=== PATIENT | female | born 1975 | race Caucasian/White ===

== ENCOUNTER → 2016-12-21 | Outpatient (CLI) | payer BC ==
[2016-12-21 11:58] LABS: Basophils % (A) 1 %; CH 30.3; CHCM 33.6; Eosinophils # (A) 0.3 k/uL (0-0.7); Eosinophils % (A) 4 %; HCT 42.4 % (34.0-46.0); HDW 2.64; HGB 13.7 gm/dL (11.4-16.0); Luc # (Auto) 0.09; Luc % (Auto) 1; Lymphocytes # (A) 3.1 k/uL (1.0-4.8); Lymphocytes % (A) 44 %; MCH 29.4 pg (25.0-35.0); MCHC 32.4 g/dL (31.0-37.0); MCV 90.7 fL (80.0-100.0); Mean Platelet Volume 6.8; Monocytes # (A) 0.3 k/uL (0-1.0); Monocytes % (A) 4 %; Neutrophils # (A) 3.2 k/uL (1.3-7.7); Neutrophils % (A) 46 %; RBC 4.67 m/uL (3.80-5.40); RDW 13.8 % (11.5-15.5); WBC (Perox) 7.29
== END | disposition home or self-care (01) ==
LOC: LABWHC1 11:27
PROVIDERS: ATTEND Family Medicine
DX: E78.00 Pure hypercholesterolemia, unspecified (principal); R68.84 Jaw pain; R53.83 Other fatigue; D17.1 Benign lipomatous neoplasm of skin and subcutaneous tissue of trunk; E66.9 Obesity, unspecified
CPT/HCPCS: 36415; 82947; 84443; 85025

== ENCOUNTER → 2016-12-29 | Outpatient (CLI) | payer BC ==
--- NOTE | 2016-12-30 10:50 | MM ---
Reason for exam: screening (asymptomatic). Last mammogram was performed 3 years and 7 months ago. Physical Findings: A clinical breast exam by your physician is recommended on an annual basis and results should be correlated with mammographic findings. MG 3D Screening Mammo W/Cad Bilateral CC and MLO view(s) were taken. Prior study comparison: May 23, 2013, left diagnostic mammogram w/CAD. September 08, 2012, [facility] DIGITAL LEFT BREAST MAMMOGRAM w/CAD. The breast tissue is heterogeneously dense. This may lower the sensitivity of mammography. Nodular density inner upper right breast with suggestion of microcalcifications. This finding is changed when compared with previous exams. ASSESSMENT: Incomplete: need additional imaging evaluation, BI-RAD 0 RECOMMENDATION: Special view mammogram of the right breast. If lesion persists on supplemental views, image directed ultrasound is recommended. [facility] will attempt to contact patient to return for supplemental views and ultrasound if indicated.
== END | disposition home or self-care (01) ==
LOC: RADMAMWWP 07:59
PROVIDERS: ATTEND Obstetrics & Gynecology
DX: Z12.31 Encounter for screening mammogram for malignant neoplasm of breast (principal); R92.2 Inconclusive mammogram
CPT/HCPCS: 77063; G0202

== ENCOUNTER → 2017-01-01 | Outpatient (CLI) | payer BC ==
--- NOTE | 2017-01-01 08:55 | MM ---
Reason for exam: additional evaluation requested from abnormal screening. Last mammogram was performed less than 1 month ago. Physical Findings: Nurse did not find any significant physical abnormalities on exam. MG 3D Work Up W/Cad RT Spot compression CC, spot compression MLO, and LM view(s) were taken of the right breast. Prior study comparison: December 29, 2016, bilateral MG 3d screening mammo w/cad. May 23, 2013, left diagnostic mammogram w/CAD. The breast tissue is heterogeneously dense. This may lower the sensitivity of mammography. No nodular density persists. Group of calcifications larger on lateral view consistent with milk of calcium. These results were verbally communicated with the patient and result sheet given to the patient on 01/01/17. ASSESSMENT: Benign, BI-RAD 2 RECOMMENDATION: Return to routine screening mammogram schedule for both breasts.
== END | disposition home or self-care (01) ==
LOC: RADMAMWWP 07:37
PROVIDERS: ATTEND Obstetrics & Gynecology
DX: R92.8 Other abnormal and inconclusive findings on diagnostic imaging of breast (principal)
CPT/HCPCS: G0206; G0279

== ENCOUNTER → 2019-05-29 | Outpatient (CLI) | payer BC ==
[2019-05-29 13:00] LABS: ALT 29 U/L (9-52); AST 22 U/L (14-36); African American GFR (CKD) >90 (>60 ml/min/1.73 sqM); Albumin 4.3 g/dL (3.5-5.0); Alkaline Phosphatase 73 U/L (38-126); Anion Gap 11 mmol/L; Blood Urea Nitrogen 12 mg/dL (7-17); Calcium 9.5 mg/dL (8.4-10.2); Carbon Dioxide 24 mmol/L (22-30); Chloride 103 mmol/L (98-107); Cholesterol 171 mg/dL (<200); Glucose 89 mg/dL (74-99); HDL Cholesterol 52 mg/dL (40-60); LDL Cholesterol,Calculated 98 mg/dL (0-99); Potassium 3.7 mmol/L (3.5-5.1); Sodium 138 mmol/L (137-145); Total Protein 7.1 g/dL (6.3-8.2); Triglycerides 104 mg/dL (<150)
[2019-05-29 13:15] LABS: T4, Free (Free Thyroxine) 0.87 ng/dL (0.78-2.19)
[2019-05-29 13:27] LABS: Basophils # (A) 0.1 k/uL (0-0.2); Basophils % (A) 1 %; Eosinophils # (A) 0.2 k/uL (0-0.7); Eosinophils % (A) 3 %; HCT 39.5 % (34.0-46.0); HGB 12.9 gm/dL (11.4-16.0); Lymphocytes # (A) 3.3 k/uL (1.0-4.8); Lymphocytes % (A) 39 %; MCH 29.4 pg (25.0-35.0); MCHC 32.6 g/dL (31.0-37.0); MCV 90.4 fL (80.0-100.0); Mean Platelet Volume 7.3; Monocytes # (A) 0.5 k/uL (0-1.0); Monocytes % (A) 6 %; Neutrophils # (A) 4.2 k/uL (1.3-7.7); Neutrophils % (A) 50 %; Platelet Count 223 k/uL (150-450); RBC 4.37 m/uL (3.80-5.40); RDW 13.5 % (11.5-15.5); WBC 8.4 k/uL (3.8-10.6)
--- NOTE | 2019-05-30 10:01 | MM ---
Reason for exam: screening (asymptomatic). Last mammogram was performed 2 years and 5 months ago. Physical Findings: A clinical breast exam by your physician is recommended on an annual basis and results should be correlated with mammographic findings. MG Screening Mammo w CAD Bilateral CC and MLO view(s) were taken. Prior study comparison: January 01, 2017, right breast MG 3d work up w/cad RT. December 29, 2016, bilateral MG 3d screening mammo w/cad. The breast tissue is heterogeneously dense. This may lower the sensitivity of mammography. There is an increased group of 4mm left upper outer quadrant posterior depth mass. No suspicious abnormality in the right breast. Left anterior depth round superior asymmetry. ASSESSMENT: Incomplete: need additional imaging evaluation, BI-RAD 0 RECOMMENDATION: Special view mammogram of the left breast. If lesion persists on supplemental views, image directed ultrasound is recommended. [facility] will attempt to contact patient to return for supplemental views and ultrasound if indicated.
== END | disposition home or self-care (01) ==
LOC: RADMAMWWP 11:04
PROVIDERS: ATTEND Family Medicine
DX: Z12.31 Encounter for screening mammogram for malignant neoplasm of breast (principal); Z00.00 Encounter for general adult medical examination without abnormal findings; D17.1 Benign lipomatous neoplasm of skin and subcutaneous tissue of trunk; R22.2 Localized swelling, mass and lump, trunk
CPT/HCPCS: 36415; 77067; 80053; 80061; 84439; 84443; 85025

== ENCOUNTER → 2019-07-06 | Outpatient (CLI) | payer BC ==
--- NOTE | 2019-07-07 09:41 | MM ---
Reason for exam: additional evaluation requested from abnormal screening. Last mammogram was performed 1 month ago. Physical Findings: Nurse Summary: 0.5-1cm nodule in the left breast at 11 o'clock, 12 o'clock (nurse kp). MG Work Up Mamm w CAD LT Spot compression CC, spot compression MLO, and LM view(s) were taken of the left breast. Prior study comparison: May 29, 2019, bilateral MG screening mammo w CAD. January 01, 2017, right breast MG 3d work up w/cad RT. The breast tissue is heterogeneously dense. This may lower the sensitivity of mammography. Dense tissues. Underlying nodularity persists. Palpable markers placed by the nurse at 11-12 o'clock. These results were verbally communicated with the patient and result sheet given to the patient on 07/06/19. ASSESSMENT: Incomplete: need additional imaging evaluation, BI-RAD 0 RECOMMENDATION: Ultrasound of the left breast. (11-3 o'clock)
--- NOTE | 2019-07-07 09:44 | USB ---
Reason for exam: additional evaluation requested from abnormal screening. US Breast Workup Limited LT Left limited breast ultrasound including focal area of concern, retroareolar and axilla demonstrates a 0.7 x 0.5 x 0.9cm mixed lesion at 12 o'clock, this has some squared off margins and internal nodularity corresponds to the palpable site, a 0.7 x 0.3 x 0.6cm oval, circumscribed, mixed lesion at 12 o'clock, a 0.5 x 0.4 x 0.5cm mixed lesion at 1 o'clock, 6 month follow up recommended and a 0.4 x 0.4 x 0.4cm mixed lesion at 3 o'clock, 6 month follow up recommended. These results were verbally communicated with the patient and result sheet given to the patient on 07/06/19. ASSESSMENT: Suspicious, BI-RAD 4 RECOMMENDATION: Ultrasound core biopsy of the left breast. (12 o'clock palpable) Called Dr. Metzger's office with mammographic findings and has scheduled an appointment for the patient for 08/02/19 at 3:[address] Hidalgo. Biopsy scheduled for 07/13/19 at 2:20. PRELIMINARY REPORT CALLED AND FAXED TO DR. HIDALGO ON 07/07/19.
== END | disposition home or self-care (01) ==
LOC: RADMAMWWP 14:15
PROVIDERS: ATTEND Family Medicine
DX: R92.8 Other abnormal and inconclusive findings on diagnostic imaging of breast (principal)
CPT/HCPCS: 77065

== ENCOUNTER → 2019-07-13 | Day surgery (SDC) | payer BC ==
[2019-07-13 14:05] VITALS: RESP 16; TEMP 98.1; BMI 33.4
[2019-07-13 15:22] VITALS: BP 112/73; PULSE 71
--- NOTE | 2019-07-13 15:32 | USB ---
EXAMINATION TYPE: US biopsy breast VAD LT, MG diagnostic mammo LT wo CAD DATE OF EXAM: 07/13/2019 CLINICAL HISTORY: R92.8 ABNORMAL MAMMOGRAM. TECHNIQUE: Ultrasound guided core biopsy of left breast. COMPARISON: Left breast ultrasound dated 07/06/2019 FINDINGS: The procedure of ultrasound guided core biopsy was explained to the patient. Benefits, alternatives, and risks were discussed. An informed consent was then obtained. Preprocedural timeout was performed. The patient was placed in supine positioning for imaging and for the procedure. The overlying skin was prepped and draped in usual sterile fashion. 10 cc of 1% lidocaine was used as anesthetic into the skin and subcutaneous tissue up to 0.9 cm cystic mass at the 12:00 position corresponding the palpable abnormality. Under ultrasound guidance, a 12-gauge vacuum assisted biopsy gun device was used to obtain 4 core samples with collapse of the cystic mass. Following this, a ribbon-shaped biopsy marker was left at the site of biopsy. Postprocedure mammogram demonstrates appropriate biopsy marker placement, corresponding to one of the mammographic masses. The patient tolerated the procedure well without any immediate complication. The patient was kept in the radiology department for short stay after the procedure and then discharged home in stable condition. IMPRESSION: Successful, uncomplicated ultrasound guided core biopsy of a 0.9 cm cystic maxillary the 12:00 position in the left breast, full pathology results to follow. Six-month follow-up ultrasound is recommended for multiple additional left breast masses (probably benign). Pathology Results: Benign LEFT BREAST, CORE BIOPSY: Benign breast parenchyma with fibrocystic changes. Recommendation Follow up ultrasound of the left breast in 6 months. GIANNID
== END ==
LOC: RADUSWWP 13:20
PROVIDERS: ATTEND Surgery
DX: N60.12 Diffuse cystic mastopathy of left breast (principal)
CPT/HCPCS: 88305; 77065; 19083; A4648; J2001

== ENCOUNTER → 2020-01-31 | Outpatient (CLI) | payer BC ==
--- NOTE | 2020-02-01 08:46 | MM ---
Reason for exam: follow-up at short interval from prior study. Last mammogram was performed 7 months ago. History: Benign US biopsy breast VAD LT of the left breast, July 13, 2019. Took hormonal contraceptives for 5 years. Physical Findings: Nurse did not find any significant physical abnormalities on exam. MG Diagnostic Mammo LT w CAD CC and MLO view(s) were taken of the left breast. Prior study comparison: July 13, 2019, left breast MG diagnostic mammo LT wo CAD. July 06, 2019, left breast MG work up mamm w CAD LT. The breast tissue is heterogeneously dense. This may lower the sensitivity of mammography. Finding: There are typically benign grouped/clustered calcifications in the upper outer quadrant, middle posterior position of the left breast. Previous mammotome biopsy in the left breast. There is a chronic nodularity in the left breast. There is no dominant lesion. These results were verbally communicated with the patient and result sheet given to the patient on 01/31/20. ASSESSMENT: Benign, BI-RAD 2 RECOMMENDATION: Return to routine screening mammogram schedule for both breasts. Back on schedule for May 2020.
--- NOTE | 2020-02-01 08:48 | USB ---
Reason for exam: follow-up at short interval from prior study. History: Benign US biopsy breast VAD LT of the left breast, July 13, 2019. Took hormonal contraceptives for 5 years. US Breast Limited LT Left limited breast ultrasound including focal area of concern, retroareolar and axilla demonstrates a 2 x 2 x 4mm lesion too small to characterize at 12 o'clock, a 6 x 5 x 5mm round, cystic, mixed lesion with post enhancement at 2 o'clock, probable debris filled cyst, stable from prior, a 9 x 5 x 12mm oval, cystic lesion at 3 o'clock, thin walled cyst and a 5 x 5 x 9mm bilobed, cystic lesion at the posterior nipple. These results were verbally communicated with the patient and result sheet given to the patient on 01/31/20. ASSESSMENT: Benign, BI-RAD 2 RECOMMENDATION: Return to routine screening mammogram schedule for both breasts. Back on schedule for May 2020.
== END | disposition home or self-care (01) ==
LOC: RADMAMWWP 08:58
PROVIDERS: ATTEND Surgery
DX: R92.8 Other abnormal and inconclusive findings on diagnostic imaging of breast (principal)
CPT/HCPCS: 77065

== ENCOUNTER → 2024-04-04 | Outpatient (CLI) | payer BC ==
[2024-04-04 16:00] LABS: Basophils # (A) 0.04 X 10*3/uL (0.00-0.10); Basophils % (A) 0.5 %; Eosinophils # (A) 0.26 X 10*3/uL (0.04-0.35); Eosinophils % (A) 3.1 %; HCT 41.1 % (37.2-46.3); HGB 13.6 g/dL (12.0-15.0); Lymphocytes # (A) 3.79 X 10*3/uL (0.90-5.00); Lymphocytes % (A) 44.7 %; MCH 29.4 pg (27.0-32.0); MCHC 33.1 g/dL (32.0-37.0); Mean Platelet Volume 10.7 FL (9.5-12.2); Monocytes # (A) 0.44 X 10*3/uL (0.20-1.00); Monocytes % (A) 5.2 %; NRBC Per 100 WBC 0 X 10*3/uL (0.00-0.01); Neutrophils # (A) 3.89 X 10*3/uL (1.80-7.70); Neutrophils % (A) 45.9 %; Platelet Count 306 X 10*3/uL (140-440); RBC 4.62 X 10*6/uL (4.10-5.20); RDW 13.2 % (11.5-14.5); WBC 8.47 X 10*3/uL (4.50-10.00)
[2024-04-04 16:32] LABS: Chol/HDL Ratio 4.07 Ratio
[2024-04-04 16:33] LABS: ALT 35 U/L (8-44); AST 31 U/L (13-35); Albumin 4.5 g/dL (3.8-4.9); Albumin/Globulin Ratio 1.96 Ratio (1.60-3.17); Alkaline Phosphatase 92 U/L (41-126); BUN/Creat Ratio 14.43 Ratio (12.00-20.00); Blood Urea Nitrogen 10.1 mg/dL (9.0-27.0); Calcium 9.5 mg/dL (8.7-10.3); Carbon Dioxide 22.8 mmol/L (21.6-31.8); Chloride 102 mmol/L (96-109); Globulin 2.3 g/dL (1.6-3.3); Glucose 98 mg/dL (70-110); LDL Cholesterol,Calculated 100.2 mg/dL (0.0-131.0); Potassium 3.9 mmol/L (3.5-5.5); Sodium 140 mmol/L (135-145); Total Bilirubin 0.5 mg/dL (0.3-1.2); Total Protein 6.8 g/dL (6.2-8.2)
== END | disposition home or self-care (01) ==
LOC: LABWHC1 11:37
PROVIDERS: ATTEND Family Medicine
DX: Z00.00 Encounter for general adult medical examination without abnormal findings (principal); F41.9 Anxiety disorder, unspecified
CPT/HCPCS: 36415; 80053; 80061; 82306; 84443; 85025

== ENCOUNTER → 2024-04-10 | Outpatient (CLI) | payer BC ==
--- NOTE | 2024-05-09 08:51 | MM ---
Reason for Exam: Screening (asymptomatic). Last mammogram was performed 4 year(s) and 11 month(s) ago. Patient History: Menarche at age 12. First Full-Term at age 23. Patient used Hormonal Contraceptives for 5 years. 07/13/2019, Benign Core Biopsy on the left side. Risk Values: Aminta 5 year model risk: 1.0%. NCI Lifetime model risk: 9.4%. Prior Study Comparison: 07/06/2019 Left Diagnostic Mammogram, [facility]. 07/13/2019 Left Diagnostic Mammogram, [facility]. 01/31/2020 Left Diagnostic Mammogram, [facility]. Tissue Density: The breasts are heterogeneously dense, which may obscure small masses. Findings: Analyzed By CAD. Right breast: There is no suspicious group of microcalcifications or new suspicious mass. Left breast: Left breast mass 6.4 cm nipple in the upper outer aspect. Overall Assessment: Incomplete: need additional imaging evaluation, BI-RAD 0 Management: Screening Mammogram of the left breast. Diagnostic Breast Ultrasound of the left breast. [facility] will attempt to contact patient to return for supplemental views and ultrasound if indicated. Patient should continue monthly self-breast exams. A clinical breast exam by your physician is recommended on an annual basis. This exam should not preclude additional follow-up of suspicious palpable abnormalities. Note on Aminta scores and lifetime risk: 1. A Aminta score greater than 3% is considered moderate risk. If this is the case, consider specialist referral to assess eligibility for a risk reducing agent. 2. If overall lifetime risk for the development of breast cancer is 20% or higher, the patient may qualify for future screening with alternating mammogram and breast MRI. Electronically signed and approved by: Dean Ramsay DO
== END | disposition home or self-care (01) ==
LOC: RADMAMWWP 15:45
PROVIDERS: ATTEND Family Medicine
DX: Z12.31 Encounter for screening mammogram for malignant neoplasm of breast (principal); R92.333 Mammographic heterogeneous density, bilateral breasts
CPT/HCPCS: 77063; 77067

== ENCOUNTER → 2024-05-23 | Outpatient (CLI) | payer BC ==
--- NOTE | 2024-05-23 15:06 | USB ---
Reason for Exam: Additional evaluation requested from abnormal screening. Patient History: Menarche at age 12. First Full-Term at age 23. Patient used Hormonal Contraceptives for 5 years. 07/13/2019, Benign Core Biopsy on the left side. Risk Values: Aminta 5 year model risk: 1.0%. NCI Lifetime model risk: 9.4%. Technique: Method: Targeted. Prior Study Comparison: 07/13/2019 Left Diagnostic Mammogram, [facility]. 01/31/2020 Left Diagnostic Mammogram, [facility]. 04/10/2024 Bilateral MG 3D screening mammo w/cad, [facility]. Findings: The upper outer quadrant of the left breast, the axilla of the left breast and the retroareolar of the left breast were scanned. There is a 1.7 x 1.8 x 1.4 cm complex cyst with scattered mild internal debris. Cyst aspiration recommended. This area appears to correspond to the mammographic finding.. Overall Assessment: Suspicious, BI-RAD 4 Management: Aspiration of the left breast. A clinical breast exam by your physician is recommended on an annual basis and results should be correlated with mammographic findings. This exam should not preclude additional follow-up of suspicious palpable abnormalities. Results were given to the patient verbally at the time of exam. [facility], , 05/23/2024 2:59 PM. Electronically signed and approved by: Jeffrey Rice D.O. Radiologis
--- NOTE | 2024-05-23 15:07 | MM ---
Reason for Exam: Additional evaluation requested from abnormal screening. Last screening mammogram was performed 1 month(s) ago. Patient History: Menarche at age 12. First Full-Term at age 23. Patient used Hormonal Contraceptives for 5 years. 07/13/2019, Benign Core Biopsy on the left side. Risk Values: Aminta 5 year model risk: 1.0%. NCI Lifetime model risk: 9.4%. Prior Study Comparison: 07/13/2019 Left Diagnostic Mammogram, [facility]. 01/31/2020 Left Diagnostic Mammogram, [facility]. 04/10/2024 Bilateral MG 3D screening mammo w/cad, [facility]. Tissue Density: Left: The breasts are heterogeneously dense, which may obscure small masses. Findings: Analyzed By CAD. Pattern appears stable. There is persistent 2.0 cm density secured margins 2:00 position approximately 4 cm from the nipple. This is persistent on compression views. Ultrasound recommended for additional evaluation. Overall Assessment: Incomplete: need additional imaging evaluation, BI-RAD 0 Management: Diagnostic Breast Ultrasound of the left breast. A negative mammogram report should not preclude additional follow up of suspicious palpable abnormalities. Patient should continue monthly self breast exam. A clinical breast exam by your physician is recommended on an annual basis and results should be correlated with mammographic findings. Note on Aminta scores and lifetime risk: 1. A Aminta score greater than 3% is considered moderate risk. If this is the case, consider specialist referral to assess eligibility for a risk reducing agent. 2. If overall lifetime risk for the development of breast cancer is 20% or higher, the patient may qualify for future screening with alternating mammogram and breast MRI. [facility], , 05/23/2024 3:04 PM. Electronically signed and approved by: Jeffrey Rice D.O. Radiologis
== END | disposition home or self-care (01) ==
LOC: RADMAMWWP 14:07
PROVIDERS: ATTEND Family Medicine
CPT/HCPCS: 77061; 77065

== ENCOUNTER → 2024-06-08 | Day surgery (SDC) | payer BC ==
--- NOTE | 2024-06-19 09:34 | MM ---
Reason for Exam: Post Procedure Mammogram. Last screening mammogram was performed 2 month(s) ago. Patient History: Menarche at age 12. First Full-Term at age 23. Patient used Hormonal Contraceptives for 5 years. 07/13/2019, Benign Core Biopsy on the left side. Risk Values: Aminta 5 year model risk: 1.0%. NCI Lifetime model risk: 9.4%. Prior Study Comparison: 01/01/2017 Right Diagnostic Mammogram, [facility]. 05/29/2019 Bilateral Screening Mammogram, [facility]. 07/06/2019 Left Diagnostic Mammogram, [facility]. 07/13/2019 Left Diagnostic Mammogram, [facility]. 01/31/2020 Left Diagnostic Mammogram, [facility]. 04/10/2024 Bilateral MG 3D screening mammo w/cad, [facility]. 05/23/2024 Left MG 3D work up w/cad LT, [facility]. 05/23/2024 Left US breast workup limited LT, [facility]. Tissue Density: Left: The breasts are heterogeneously dense, which may obscure small masses. Pathology Description: Location: 2 o'clock. Hydromark Coil, Aspiration- 3 mL The ultrasound guided cyst aspiration procedure was explained to the patient. The risks, benefits, alternatives were discussed. An informed consent was then obtained. A time out was performed. The patient was placed in supine positioning for imaging and for the procedure. The overlying skin was prepped with betadine and sterilely draped in usual sterile fashion. 10 ml 1% lidocaine was used as anesthetic into the skin and deeper breast tissue up to area of concern in the left breast 2:00 position 3 cm from the nipple. Under ultrasound guidance, an 12-gauge spinal needle was advanced into the cyst and aspiration yielded 2 mL of cloudy greenish. The fluid was labeled and sent for laboratory analysis. A clip was left in lesion. Good hemostasis was obtained with direct pressure. Postprocedure mammogram: The patient was transferred to mammography for physician ordered post procedure mammogram for clip placement verification. The clip is in the expected region of the biopsy. The patient tolerated the procedure well without any immediate complication. The patient was discharged to home in stable condition. Impression: Successful ultrasound guided cyst aspiration left breast. Cytology pending. [facility], , 06/08/2024 2:43 PM. Pathology Results: Result: Benign, Apocrine metaplasia. Pathology and radiology were reviewed. Findings are concordant. LEFT BREAST, ASPIRATION: Hypocellular specimen with scattered red blood cells and few ductal cells with apocrine metaplasia. Current specimen non-diagnostic for neoplasia (see note). Notes If there is clinical suspicion for malignancy, a core tissue biopsy can be performed, if clinically indicated. The findings seen may represent cystic fluid from fibrocystic change. Correlation with imaging studies is suggested, as clinically indicated. Overall Assessment: Benign Assessment: MG diagnostic mammo LT wo CAD. - Left: Benign, BI-RAD 2. Management: Diagnostic Breast Ultrasound of the left breast in 6 months. Electronically signed and approved by: Gilbert Leal M.D. Radiologis
== END ==
LOC: RADUSWWP 11:41
PROVIDERS: ATTEND Surgery
DX: R92.8 Other abnormal and inconclusive findings on diagnostic imaging of breast
CPT/HCPCS: 76942; 77065; 88173; 88305